=== PATIENT | female | born 1985 | race American Indian/Alaskan Native ===

== ENCOUNTER 2016-05-18 10:54 | Emergency (ER) | payer SELFPAY ==
[2016-05-18 11:15] VITALS: BP 144/84
== END 2016-05-18 14:00 | disposition left against medical advice (07) ==
LOC: ED 10:54
DX: K08.89 Other specified disorders of teeth and supporting structures (principal); Z53.21 Procedure and treatment not carried out due to patient leaving prior to being seen by health care provider